=== PATIENT | male | born 1955 | race Caucasian/White ===

== ENCOUNTER 2024-01-25 10:19 | Emergency (ER) | payer OTHER, SELFPAY ==
[2024-01-25 10:28] VITALS: BP 183/93
[2024-01-25 11:53] LABS: % Basophils 0.3 % (0-2); % Eosinophils 0.8 % (0-6); % Immature Granulocytes 0.2 % (0-0.5); % Monocytes 4.8 % (1.7-9.3); % Neutrophils 65.9 % (42.2-75.2); Absolute Eosinophils 0.1 10^3/uL (0-0.7); Absolute Lymphocytes 2.9 10^3/uL (1.2-3.4); Absolute Monocytes 0.5 10^3/uL (0.1-0.6); Absolute Neutrophils 6.8 10^3/uL (1.4-6.5); Hematocrit 40.3 % (39.0-52.0); Hemoglobin 14.1 g/dL (13.0-18.0); Mean Corpuscular Hgb 29.6 pg (27.0-31.0); Mean Corpuscular Volume 84.5 fL (80.0-94.0); Mean Platelet Volume 9.7 fL (7.4-10.4); Nucleated Red Blood Cells % 0 % (-); Platelet Count 331 10^3/uL (130-400); Red Blood Cell Count 4.77 10^6/uL (4.70-6.10); Red Cell Dist. Width 13.2 % (11.5-14.5); White Blood Cell Count 10.2 10^3/uL (4.8-10.8)
--- NOTE | 2024-01-25 11:54 | ED.GENMED ---
History of Present Illness
General
Chief Complaint: Crisis Evaluation
Source: patient
Exam Limitations: none
Time Seen by Provider: 01/25/24 11:42
Travel History
Have you had any contact with someone who has COVID-19?: No
Do you have any symptoms of coronavirus? Fever > 100 degrees, chills, cough, shortness of breath, sore throat, loss of taste or smell, muscle aches, or headache?: No
History of Present Illness
History of Present Illness:
68-year-old male presents in referral from [facility] for medical clearance. He is here for depression. He states he is in need of inpatient psychiatric help. He has passive thoughts of harming himself. He has not taken his medications but denies
any chest pain or shortness of breath. No recent fever. No other complaints.
Past History
Past History
ED Past Medical History: COPD, HTN, Seizures, Psychiatric (Bipolar, A/D, SI, Depression) and Other (spinal stenosis, Bronchitis)
Social History
Tobacco: Smoker
Alcohol: None
Drug: None
Personal: Single
Living: with family
Employment: Employed
Family History
Family History: Other
Phy Exam
Physical Exam
Physical Exam:
General: Well-appearing male no acute respiratory distress
HEENT: Normal cephalic, atraumatic
Heart: RRR, no murmurs
Lungs: CTA bilaterally
ext: no cyanosis
Skin: warm, no rashes
Course
Orders/Labs/Results
Orders:
Orders
01/25/24 11:37
Alcohol Urgent
Basic Metabolic Panel Urgent
Complete Blood Count/With Diff Urgent
Urine Drug Abuse Screen Urgent
Date Specimen was Collected: 01/25/24
Time Specimen was Collected: 11:36
Abnormal Lab Results
01/25/24
11:37
Absolute Neuts (auto) 6.8 H 10^3/uL
(1.4-6.5)
Glucose 138 H mg/dl
(70-99)
01/25/24 11:37
01/25/24 11:37
Vital Signs
Initial and Last Documented VS:
Initial Vital Signs
Temp Pulse Resp BP Pulse Ox
98.5 F 68 18 183/93 97
01/25/24 10:28 01/25/24 10:28 01/25/24 10:28 01/25/24 10:28 01/25/24 10:28
Last Documented Vital Signs
Temp Pulse Resp BP Pulse Ox
98.5 F 68 18 183/93 97
01/25/24 10:28 01/25/24 10:28 01/25/24 10:28 01/25/24 10:28 01/25/24 10:28
MDM/Problems Addressed
Differential Diagnosis Includes:
Will check labs. Medically so far stable including vital signs. As long as labs are okay we will be medically clear for psychiatric disposition
*Critical Care Note
Total Time (30-74mins, 75-104mins- exclusive of procedures): Not Applicable
Update Note
Update Note:
Patient has normal blood work. He has been stable. Medically he is cleared for psychiatric disposition. Will be discharged back to the crisis department
ED Attending Note
-
Portions of this chart may have been created with voice recognition software.� Occasional wrong word or��sound alike� substitutions may have occurred due to the inherent limitations of voice recognition software.
Discharge Plan
Departure
Patient Disposition: [facility]
Date of Disposition: 01/25/24
Time of Disposition: 12:27
Discharge Problem:
Depression
Prescriptions:
No Action
levetiracetam 500 MG tablet
500 mg PO BID
prazosin 1 MG capsule
1 mg PO HS
calcium carbonate-vitamin D3 1 EACH tablet
1 ea PO DAILY
lamotrigine 25 MG tablet, chewable dispersible
25 mg PO DAILY
mirtazapine 30 MG tablet
30 mg PO HS
acetaminophen 325 MG tablet
650 mg PO Q6HPRN PRN (Reason: mild pain/ fever>100.5F) 0RF
prednisone 20 MG tablet
40 mg PO DAILY Qty: 10 0RF
Activity Restrictions/Additional Instructions:
Please seek further treatment for [facility].
Interventions
Interventions:
*Risk Screen - Suicide Last Done: 01/25/24 11:53
*General Assessment Last Done: 01/25/24 11:53
*Neglect/Abuse Screening Last Done: 01/25/24 11:53
ED- Fall Risk Assessment Last Done: 01/25/24 11:53
*ED COVID-19 Vaccine History Last Done: 01/25/24 11:53
ED-Psychological Assessment Last Done: 01/25/24 11:53
[2024-01-25 12:12] LABS: Blood Urea Nitrogen 17 mg/dl (9-20); Calcium 9.3 mg/dl (8.4-10.2); Carbon Dioxide 27 mmol/L (22-30); Chloride 104 mmol/L (98-107); Glucose 138 mg/dl (70-99); Potassium 4.2 mmol/L (3.5-5.1); Sodium 137 mmol/L (135-145); eGFR > 60.00
[2024-01-25 12:13] LABS: Alcohol None Detected
[2024-01-25 12:14] LABS: Amphetamines Negative (Negative); Barbiturates Negative (Negative); Benzodiazepines Negative (Negative); Buprenorphine Negative (Negative); Cocaine Negative (Negative); Marijuana Negative (Negative); Methadone Negative (Negative); Methamphetamines Negative (Negative); Opiates Negative (Negative); Phencyclidine Negative (Negative); Tricyclic Antidepressants Negative (Negative)
== END 2024-01-25 12:31 ==
LOC: EMR 10:19
PROVIDERS: EMERGENCY PHYSICIAN Emergency Medicine
DX: F32.A Depression, unspecified (principal); J44.9 Chronic obstructive pulmonary disease, unspecified; I10 Essential (primary) hypertension; G40.909 Epilepsy, unspecified, not intractable, without status epilepticus; M48.00 Spinal stenosis, site unspecified; F17.200 Nicotine dependence, unspecified, uncomplicated
CPT/HCPCS: 99283; 80048; 80306; 82077; 85025